=== PATIENT | female | born 1985 | race Caucasian/White ===

== ENCOUNTER 2018-05-04 17:01 | Emergency (ER) | payer MEDICAID ==
[~2018-05-04] VITALS: Ht 160 cm; Wt 49.0 kg
[~2018-05-04 17:01] MED LIST: AMOX875T2 PO; CLIN-26 PO; ONDA8TAB9 PO; ZOF4T PO
[2018-05-04 17:39] LABS: BASOPHILS % (AUTO) 0.3 % (0-1); EOSINOPHILS % (AUTO) 0 % (0-6); HEMATOCRIT 40.5 % (35.0-45.0); LYMPHOCYTES # (AUTO) 1.3 X10'3 (1.1-4.8); LYMPHOCYTES % (AUTO) 10.6 % (21-51); MEAN CORPUSCULAR HEMOGLOBIN 31.2 PG (27.0-31.0); MEAN CORPUSCULAR HGB CONC 34.5 % (33.0-36.5); MEAN CORPUSCULAR VOLUME 90.3 FL (78-98); MEAN PLATELET VOLUME 8.5 FL (7.4-10.4); MONOCYTES # (AUTO) 0.6 X10'3 (0-0.9); MONOCYTES % (AUTO) 4.7 % (2-12); NEUTROPHILS # (AUTO) 10.3 X10'3 (1.8-7.7); NEUTROPHILS % (AUTO) 84.4 % (42-75); PLATELET COUNT 292 X10'3 (140-440); RED BLOOD COUNT 4.48 X10'6 (4.20-5.60); RED CELL DISTRIBUTION WIDTH 12.9 % (11.5-14.5); WHITE BLOOD COUNT 12.2 X10'3 (4.5-11.0)
[2018-05-04 17:50] LABS: ALANINE AMINOTRANSFERASE 37 U/L (12-78); ALBUMIN/GLOBULIN RATIO 1.2 (1.1-1.5); ALKALINE PHOSPHATASE 104 IU/L (46-116); ANION GAP 11 (8-16); ASPARTATE AMINO TRANSFERASE 18 U/L (10-37); BILIRUBIN,TOTAL 0.5 MG/DL (0.1-1.0); BLOOD UREA NITROGEN 6 MG/DL (7-18); CALCIUM 8.8 MG/DL (8.5-10.1); CHLORIDE 102 MMOL/L (99-107); CREATININE 0.75 MG/DL (0.40-0.90); GLUCOSE 126 MG/DL (70-104); POTASSIUM 3.5 MMOL/L (3.5-5.1); SODIUM 137 MMOL/L (135-145); TOTAL CARBON DIOXIDE 24.4 MMOL/L (24-32); TOTAL PROTEIN 7.3 G/DL (6.4-8.2); eGFR 89 ML/MIN
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
[2018-05-04 18:00] LABS: INR 1.1 INR; PARTIAL THROMBOPLASTIN TIME 27 SECONDS (22-32); PROTHROMBIN TIME 11.1 SECONDS (9.0-12.0)
[2018-05-04] MEDS ORDERED: LORazepam 2 mg/ml vial IV ONE (18:20)
[2018-05-04] MEDS ORDERED: normal saline 1000ML IV soln IVB ONE (18:20)
--- NOTE | 2018-05-04 19:33 | NUR ---
pt sitting in bed reading. no pain. vitals stable. family at bedside RP head butler
--- NOTE | 2018-05-04 19:33 | NUR ---
MASS SPECTROMETRY MANAGER OBTAINED CT ANGIO AND LABS FROM [facility] FOR DR RIVERO
[2018-05-04 19:59] VITALS: BP 111/77
== END 2018-05-04 20:05 | disposition home or self-care (01) ==
LOC: ER 17:02
DX: R42 Dizziness and giddiness (principal); J45.909 Unspecified asthma, uncomplicated; G89.29 Other chronic pain; M54.9 Dorsalgia, unspecified; Z87.891 Personal history of nicotine dependence
CPT/HCPCS: 36415; 71045; 80053; 84484; 85025; 85610; 85730; 93005; 96361; 96374; 99284; J2060; J7030

== ENCOUNTER 2018-08-14 11:29 | Outpatient (CLI) | payer MEDICAID | END 2018-08-14 23:59 | disposition home or self-care (01) | LOC: RAD 11:29 | PROVIDERS: ATTEND Psychiatry & Neurology Neurology | DX: R55 Syncope and collapse (principal) | CPT/HCPCS: 95816 ==

== ENCOUNTER 2020-02-03 22:48 | Emergency (ER) | payer BC, MEDICAID ==
[~2020-02-03] VITALS: Ht 160 cm; Wt 50.0 kg
[2020-02-03 22:57] VITALS: BP 159/105
[2020-02-03] MEDS ORDERED: azithromycin 250mg tablet PO ONE (23:15)
[2020-02-03] MEDS ORDERED: CefTRIAXone 250MG IM Kit w/LIDOcaine IM ONE ×2 (23:15→23:40)
--- NOTE | 2020-02-03 23:15 | NUR ---
PT WITH MEDS IN HER PURSE: TRAMADOL 50 MG, ALPRRAZOLAM 1 MG TABS (2 BOTTLES), BIRTHCONTROL PILLS, AND ALBUTEROL MDI.
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
[2020-02-03 23:30] LABS: URINE HCG NEGATIVE (NEG)
[2020-02-03] MEDS ORDERED: acetaminophen 325mg tablet PO ONE (23:35)
[2020-02-03 23:41] LABS: CLARITY,URINE CLEAR (Clear); COLOR,URINE STRAW (Yellow); GLUCOSE, URINE NEGATIVE (Neg); KETONES,URINE NEGATIVE (Neg); LEUKOCYTE ESTERASE ,URINE NEGATIVE (Neg); NITRITES, URINE NEGATIVE (Neg); OCCULT BLOOD,URINE SMALL (Neg); PH,URINE 6.5 (4.8-8.0); PROTEIN,URINE NEGATIVE (Neg); UROBILINOGEN,URINE 0.2 E.U/dL (0.2-1.0)
[2020-02-03 23:43] LABS: UA COLLECTION TYPE VOIDED
[2020-02-03 23:49] LABS: BACTERIA,URINE NONE SEEN /HPF (Neg); MUCUS STRANDS NONE SEEN /LPF (Neg); RBC,URINE 0-2 /HPF (0-2); SQUAMOUS EPITHELIAL CELL,UR FEW /LPF (FEW); WBC,URINE 0-4 /HPF (0-4)
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
--- NOTE | 2020-02-04 00:23 | NUR ---
S.O. OFFICER NOW AT BEDSIDE TALKING WITH PT. PT IS PREPARED FOR DC. DR. VAUGHAN AND Ricco LUKE, UPDATED THAT THE OFFICER IS AT BEDSIDE WITH PT.
--- NOTE | 2020-02-04 00:26 | NUR ---
DISCHARGE STATUS CHANGED TO PROCEDURE WAIT TX SCREEN OF URINIE PENDING
[2020-02-04 00:50] LABS: URINE AMPHETAMINE SCREEN NEGATIVE (Neg); URINE BARBITUATE SCREEN NEGATIVE (Neg); URINE BENZODIAZEPINES SCREEN NEGATIVE (Neg); URINE CANNABINOID SCREEN NEGATIVE (Neg); URINE COCAINE SCREEN NEGATIVE (Neg); URINE METHADONE SCREEN NEGATIVE (Neg); URINE OPIATE SCREEN POSITIVE (Neg); URINE PHENCYCLIDINE SCREEN NEGATIVE (Neg)
--- NOTE | 2020-02-04 01:16 | NUR ---
SO OFFICER REMAINS WITH PT.
--- NOTE | 2020-02-04 01:20 | NUR ---
PT HAD BEEN TALKING WITH SO IN HER ROOM AND WHEN THE OFFICER STEPPED OUT OF THE ROOM TO MAKE A PHONE CALL TO HIS PHARMACY LABORATORY TECHNICIAN, THEN PT LEFT. SHE HAD BEEN DC READY. PT DID NOT TAKE HER PAPERWORK. PER REGISTRATION, THE PT DID STOP AND TALK WITH THEM AND GIVE THEM HER INSURANCE INFORMATION. PER THE [facility] SCREENEER, THE PT WALKED OUT INTO THE PARKING LOT AND THE SO OFFICER BEGAN TO TALK WITH HER AGAIN AND SHE KEPT WALKING. SHE DID NOT GET INTO A CAR SHE WAS ON FOOT. PT HAD TOLD BE EARLIER THAT SHE WOULD CALL HER BROTHER AND HE WOULD TAKE HER TO HER HOME TONIGHT. PT DID HAVE A CELL PHONE WITH HER AND SHE HAD BEEN REGULARLY TEXTING ON HER PHONE.
== END 2020-02-04 01:38 | disposition home or self-care (01) ==
LOC: ER 22:49
DX: G89.29 Other chronic pain (principal); R10.84 Generalized abdominal pain; J45.909 Unspecified asthma, uncomplicated; F41.9 Anxiety disorder, unspecified; F32.9 Major depressive disorder, single episode, unspecified; Z79.2 Long term (current) use of antibiotics; Z79.899 Other long term (current) drug therapy; Y09 Assault by unspecified means
CPT/HCPCS: 36415; 80305; 81001; 81025; 87491; 87591; 96372; 99284; J0696